=== PATIENT | female | born 1955 | race African-American/Black ===

== ENCOUNTER → 2021-02-10 | Outpatient (CLI) | payer MEDICARE, OTHER ==
--- NOTE | 2021-02-10 17:15 | KCIC ---
STUDY: MRI of the left knee without contrast INDICATION: Left knee pain. COMPARISON: None. TECHNIQUE: Multiplanar MR imaging of the left knee performed without the use of intravenous or intra- articular contrast. FINDINGS: Menisci: Small free edge tear at the medial meniscus posterior horn, image 11 series 8. Articular fred ed fibrillation at a few additional locations such as at the posterior horn on image 18 series 6 and anterior horn on image 16 series 6. Heterogeneity at the lateral meniscus posterior horn/root junctio n without a discrete tear. Cruciate ligaments: Intact. Collateral ligaments: Mildly heterogeneous and thickened MCL at its proximal aspect, image 14 series 8, but without a focal tear. The lateral collateral ligaments are intact. No retinacular disruption. Tendons: Intact. Cartilage: Patellofemoral: Scattered patellar and trochlear chondrosis predominantly partial-thickness but with localized high-grade involvement at the mid to upper lateral trochlea with associated subchondral rhina ma. Lateral compartment: Weightbearing and posterior nonweightbearing superficial chondrosis. Medial compartment: Partial thickness weightbearing chondrosis. High-grade or full-thickness chondros is at the posterior nonweightbearing medial femoral condyle measuring approximately 8 mm transverse b y 10 mm proximal to distal. Bones: Tricompartmental osteophytes. No acute fracture or focally aggressive signal abnormality. Miscellaneous: Moderate to large knee joint effusion with mild synovitis. Small Christie's cyst containi ng a prominent ossified loose body measuring 12 mm. Scattered soft tissue edema. IMPRESSION: 1. Small radial tear of the medial meniscus posterior horn. A few additional areas of degenerative a rticular sided fraying. No full-thickness tear of either meniscus. 2. No acute abnormality of the cruciate ligaments, collateral ligaments are tendons. 3. 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 4. Moderate to large knee joint effusion with mild synovitis. Small Christie's cyst containing an ossif ied loose body measuring up to 12 mm. Electronically signed by: DAKOTA ANGELES MD (02/10/2021 5:12 PM) [id number]
== END ==
LOC: KCIC MRI 13:54
PROVIDERS: ATTEND Family Medicine
DX: S83.242A Other tear of medial meniscus, current injury, left knee, initial encounter (principal); M71.22 Synovial cyst of popliteal space [Baker], left knee; M25.462 Effusion, left knee; X58.XXXA Exposure to other specified factors, initial encounter; Y93.89 Activity, other specified; Y92.89 Other specified places as the place of occurrence of the external cause; Y99.8 Other external cause status
CPT/HCPCS: 73721